=== PATIENT | female | born 1935 | race Caucasian/White ===

== ENCOUNTER 2016-11-03 08:38 | Emergency (ER) | payer MEDICARE ==
[~2016-11-03] VITALS: Ht 152.4 cm; Wt 49.4 kg
[2016-11-03] MEDS ORDERED: CALCTAB28 PO (09:02)
[2016-11-03] MEDS ORDERED: PANT40TA2 (09:02)
[2016-11-03] MEDS ORDERED: ATOR1TAB21 (09:02)
[2016-11-03] MEDS ORDERED: METO-346 PO (09:02)
[2016-11-03] MEDS ORDERED: RAMI25CA (09:02)
[2016-11-03] MEDS ORDERED: GABA-279 (09:02)
[2016-11-03] MEDS: PERCOCET 5MG/325MG TAB PO ONE (10:25)
[2016-11-03] MEDS ORDERED: [UNRECOGNIZED DRUG - CODE] XX (11:09)
[2016-11-03] MEDS ORDERED: PERC5TAB6 PO (11:09)
--- NOTE | 2016-11-03 11:20 | REP ---
PELVIS AND RIGHT HIP: AP view of the pelvis and two views of the right hip are performed. There is no acute fracture or dislocation. Mild degenerative changes are seen at each hip joint and sacroiliac joint, with mild joint space narrowing and subchondral sclerosis. Multiple vascular calcifications and phleboliths are seen in the pelvis. IMPRESSION: Mild degenerative changes without fracture or dislocation. Signed by Hamlet Crawford MD 11/03/2016 04:37 P
[2016-11-03 12:02] VITALS: BP 156/69
== END 2016-11-03 12:22 | disposition home or self-care (01) ==
LOC: M ED 09:45
DX: M54.5 Low back pain (principal); M16.11 Unilateral primary osteoarthritis, right hip; I10 Essential (primary) hypertension; E78.9 Disorder of lipoprotein metabolism, unspecified; I25.10 Atherosclerotic heart disease of native coronary artery without angina pectoris; Z95.1 Presence of aortocoronary bypass graft; Z79.899 Other long term (current) drug therapy

== ENCOUNTER 2016-11-22 20:06 | Inpatient (IN) | payer MEDICARE ==
[~2016-11-22] VITALS: Ht 157.5 cm; Wt 51.6 kg
[~2016-11-22 20:06] MED LIST: ATOR1TAB21 PO; CALCTAB28 PO; GABA-279 PO; METO-346 PO; PANT40TA2 PO; PERC5TAB6 PO; RAMI25CA PO; [UNRECOGNIZED DRUG - CODE] XX
[2016-11-22 21:09] LABS: MEAN CORPUSCULAR HEMOGLOBIN 30.5 pg (27.0-33.0); MEAN CORPUSCULAR HGB CONC 32.4 g/dl (32.0-36.5); MEAN CORPUSCULAR VOLUME 94.4 fl (80.0-96.0); RED CELL DISTRIBUTION WIDTH 12.8 % (11.5-14.5); WHITE BLOOD COUNT 6.3 K/mm3 (4.0-10.0)
[2016-11-22 21:49] LABS: ALBUMIN 3.8 GM/DL (3.2-5.2); ALBUMIN/GLOBULIN RATIO 1.06 (1.00-1.93); BILIRUBIN,TOTAL 0.4 MG/DL (0.2-1.0); CALCIUM LEVEL 8.7 MG/DL (8.8-10.2); CREATININE FOR GFR 1.5 MG/DL (0.55-1.02); GLOMERULAR FILTRATION RATE 35.6 (>32); POTASSIUM SERUM 4.2 MEQ/L (3.5-5.1); TOTAL PROTEIN 7.4 GM/DL (6.4-8.2)
[2016-11-22] MEDS ORDERED: ONDANSETRON 4MG/2ML VIAL (J2405) IV PRN (22:15)
[2016-11-22] MEDS ORDERED: METO-346 PO (22:18)
[2016-11-22] MEDS ORDERED: TYLE650T35 PO (22:18)
[2016-11-22] MEDS: NS 1,000 ML IV SCH (23:09)
--- NOTE | 2016-11-22 23:31 | HPE ---
DATE OF ADMISSION: 11/22/2016 PRIMARY CARE PHYSICIAN: Dr. Milligan INPATIENT HOSPITALIST ATTENDING: Cuco Chew MD CHIEF COMPLAINT: Recurrent falls. HISTORY OF PRESENTING ILLNESS: This is an 81-year-old female who lives alone, history of coronary artery disease (CAD), coronary artery bypass graft (CABG), hysterectomy, hypertension, hypercholesterolemia, reflux disease, cataract surgery, who was in her usual state of health until about 2 months ago when family had noticed worsening cognitive impairment. Patient is almost at full care, requiring prompting to bathe, take care of her medications, patient will not eat and take care of herself without prompting. She lives next door to her son with her [id number] checking up on her daily, sits with her in the evening and eats dinner with her son and [id number]. Patient has been increasingly forgetful and has been having recurrent falls at home a few times and unsteady gait according to the daughter. A nurses' aide comes in the morning to help her bathe and take her medications. Patient was noted to be taking her Depends off at night and usually has many bouts of accidents. She has been complaining of some chills with no fever, cough, shortness of breath, nausea, vomiting, diarrhea, abdominal pain, dysuria, urgency, frequency. Since August this year, she has had worsening cognitive decline prompting the family to request placement for her. Today, around 3 p.m., the nurses' aide had seen her and around 5-6 p.m. the [id number], Leola, came home from work and found her lying on the living room floor on her right side in position. It was very hot in the room. Patient could not remember why she was on the floor and what happened throughout the day. Fingerstick was 175. Vital signs were normal. In the emergency room (ER) she was found to be severely disoriented and confused. She was found to be slightly dehydrated with slight increase in her creatinine. Hospitalist service was called for admission for acute kidney injury and altered mental status and for placement issues. PAST MEDICAL HISTORY: 1. Hypertension. 2. CAD with CABG. 3. Cataracts. PAST SURGERY HISTORY: 1. Hysterectomy 1983. 2. CABG. 3. Cataract surgery bilaterally. ALLERGIES: CIPRO, causing swells up. SOCIAL HISTORY: Lives alone. Previous smoker, at age 19 to August of this year, previously smoked a pack a day. No alcohol use. 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 She currently does not have any advanced directives. Healthcare proxy is the daughter, Nicolle, cell phone is [phone], as well as the brother's girlfriend, Leola. FAMILY HISTORY: Noncontributory due to age. REVIEW OF SYSTEMS: Could not be obtained as the patient is demented. Awake, alert, oriented to her name only. History is provided by the patient's daughter at the bedside. PHYSICAL EXAMINATION: Temperature 98.5, pulse 96, respiratory rate 18, blood pressure 159/93, 93% on room air. Generally, patient is awake, alert, oriented to person only, she is disoriented to time and place. She answers questions appropriately. Speech is fluent. No respiratory distress. Pupils round and reactive. Extraocular muscles are intact. Follows commands. Tongue is midline. No facial asymmetry. No jugular venous distention, thyromegaly, or cervical lymphadenopathy. Lungs are clear to auscultation. No wheezing, rales, or rhonchi. Heart S1, S2, sinus rhythm. Abdomen is soft, nontender, nondistended. Positive bowel sounds times four quadrants. Extremities have no pitting edema. White count 6.3, hemoglobin 13, hematocrit 40, platelet count 276. Sodium 142, potassium 4.2, chloride 106, bicarbonate 29, BUN 27, creatinine 1.5, glucose 162 , calcium 8.7, total bilirubin 0.4, AST 20, ALT 25, alkaline phosphatase 127, total CK 59, MB fraction 1, troponin is 0.02, albumin 3.8. Chest xray, no report available. ASSESSMENT AND PLAN: This is an 81-year-old female with history of coronary artery disease (CAD), coronary artery bypass graft (CABG), history of urinary tract infections (UTIs) with Escherichia (E) coli and Streptococcus, prior hysterectomy, cataract surgery, hypertension, presents with recurrent falls and progressive cognitive decline at home prompting family to request placement. She was found at home on the ground with no recollection of today's events. Patient will be admitted as an inpatient for two midnights and assigned to Dr. Cuco Chew for the following issues: 1. Acute kidney injury. Patient will be given intravenous fluids. Most likely secondary to dehydration, decreased oral intake. Due to severe dementia, patient requires prompting to eat and drink. Patient is requiring placement. Avoid nephrotoxins. Renally dose all medications. Check repeat metabolic panel in the morning. Renal ultrasound if no significant improvement. Strict intake and output and bladder scan if needed. 2. Progressive cognitive impairment. Patient is currently disoriented. Per the family she has been increasingly declining with her mental abilities since August of this year. Will check vitamin D levels. Her gait has progressively worsened as well. Will obtain CT of the brain. Rule out acute infectious process by checking urinalysis, urine culture and sensitivity. 3. Hypertension. Held ramipril due to renal failure. norvasc if sbp>150 4. History of coronary artery disease (CAD), coronary artery bypass graft (CABG). Continue on atorvastatin. Hold ramipril due to acute kidney injury. Continue on metoprolol. 5. Hypercholesterolemia. Check lipid panel in the morning. Continue atorvastatin. 6. Deep venous thrombosis (DVT) prophylaxis with compression stockings. [facility]
--- NOTE | 2016-11-23 00:30 | REPUSA ---
CLINICAL HISTORY: AMS. TECHNIQUE: Multiple axial CT images were obtained through the brain without IV contrast material. COMMENTS: There is normal configuration of sella turcica. There are no intra or extra-axial collections. There is no mass effect or midline shift. There is no evidence of hematoma formation. No hydrocephalus is p resent. The ventricles are symmetrical. No abnormal calcifications are present. There is diffuse age-appropriate cerebellar and cerebral atrophy with proportionally dilated ventricl es and cortical sulci. There are bilateral confluent periventricular and subcortical white matter hypolucencies compatible w ith severe chronic microvascular disease. Otherwise, no significant focal abnormalities are seen either in the posterior fossa or supratentoria l compartment. IMPRESSION: 1. Severe cerebellar and cerebral atrophy. 2. Severe chronic microvascular disease. 3. No evidence of acute intracranial pathology. Thank you for your kind referral of this patient.
[2016-11-23 02:45] VITALS: BP 177/77
[2016-11-23 06:00] VITALS: BP 154/62
[2016-11-23 06:05] LABS: BASO # 0.1 K/mm3 (0.0-0.2); BASO % 1.3 % (0.0-1.0); EOS # 0.2 K/mm3 (0.0-0.50); EOS % 3.4 % (0.0-3.0); LARGE UNSTAINED CELL # 0.2 K/mm3 (0.0-0.4); LARGE UNSTAINED CELL % 3.3 % (0.0-4.0); LYMPH # 2.1 K/mm3 (1.5-4.5); LYMPH % 39.4 % (24.0-44.0); MEAN CORPUSCULAR HGB CONC 33.8 g/dl (32.0-36.5); MEAN CORPUSCULAR VOLUME 91.6 fl (80.0-96.0); MONO # 0.7 K/mm3 (0.0-0.8); MONO % 15.3 % (0.0-5.0); NEUTROPHILS # 1.8 K/mm3 (1.8-7.7); NEUTROPHILS % 37.1 % (36.0-66.0); PLATELET COUNT, AUTOMATED 241 k/mm3 (150-450); WHITE BLOOD COUNT 4.8 K/mm3 (4.0-10.0)
[2016-11-23 06:27] LABS: CALCIUM LEVEL 8.6 MG/DL (8.8-10.2); CREATININE FOR GFR 1.3 MG/DL (0.55-1.02); POTASSIUM SERUM 3.7 MEQ/L (3.5-5.1)
--- NOTE | 2016-11-23 08:18 | ECGEPIP ---
Stationary ECG Study [facility] - ED Test Date: 2016-11-22 Pat Name: STEPHON VASQUEZ Department: Room: [place] [address] Gender: F Stack Yield Engineer: PASQUALE : 1935 Requested By: ZION Tineo Order Number: [id number] Reading MD: Catalina Avendaño Measurements Intervals [place] Rate: 98 P: 56 OK: 164 QRS: -39 QRSD: 117 T: 114 QT: 385 QTc: 492 Interpretive Statements SINUS RHYTHM POSSIBLE LEFT ATRIAL ENLARGEMENT MARKED LEFT AXIS DEVIATION POSSIBLE ANTERIOR MYOCARDIAL INFARCTION, OF INDETERMINATE AGE MODERATE T-WAVE ABNORMALITY, CONSIDER LATERAL ISCHEMIA VS LVH IVCD CLINICAL CORRELATION NO PRIOR FOR COMPARISON Electronically Signed On 11-23-2016 8:18:17 EDT by Catalina Avendaño
--- NOTE | 2016-11-23 08:37 | REP ---
Portable chest, single AP view, the patient upright, and 20, 04:00 p.m., 11/22/2016. Comparison is 09/29/2016. There is a faintly visible linear density inferiorly in the left lung, unchanged, likely parenchymal scar. Lung ag otherwise clear. There are sternotomy wires. Cardiac size is enlarged. These findings are unchanged. The liliana, mediastinum, and bony thorax are unremarkable and unchanged . Impression: There are no acute cardiopulmonary findings. There is a focal scar inferiorly in the left lung, unchanged. Signed by Hamlet Renee MD 11/23/2016 08:28 A
[2016-11-23] MEDS: NS 1,000 ML IV SCH (09:46)
[2016-11-23] MEDS: PANTOPRAZOLE 40MG TAB (PROTONIX) PO SCH (09:46)
--- NOTE | 2016-11-23 13:57 | IPNPDOC ---
Text Note Date of Service The patient was seen on 11/23/16. NOTE Subjective: Pt feels well. Denies CP/SOB/palpitations. No N/V/Abd pain. Objective: Vitals: (see below) General: No acute distress, laying comfortably in bed. HEENT: Moist mucous membranes. Neck: No JVD or lymphadenopathy Cardiac: RRR, No murmurs Pulm: Clear to auscultation b/l. No wheezing, rhonchi Abd: NT/ND + BS Ext: No edema or cyanosis.Distal pulses intact. Neuro: AAO to person and place. Strength 5/5 in all ext. CN 2-12 intact. F to nose intact. Labs (see below) Images: CT Head 11/22/16 IMPRESSION: 1. Severe cerebellar and cerebral atrophy. 2. Severe chronic microvascular disease. 3. No evidence of acute intracranial pathology. CXR 11/22/16 Impression: There are no acute cardiopulmonary findings. There is a focal scar inferiorly in the left lung, unchanged. Assessment/Plan 1. BETITO - likely 2/2 decreased PO intake. Improved with IVF. Cont to monitor. Avoid nephrotoxins. 2. H/o dementia for many years, with progression over the past few months. CT head with severe cerebellar and cerebral atrophy. Severe microvascular dz. Will need 24h care. commissary manager working on placement. CXR negative. Urine cx pending. 3. HTN -ACEi held. On Norvasc. CAD s/p CABBG - on statin. ARIELLA on hold. Cont BB. Add ASA. 4. HLD on statin. DVT prophy - SCDs PT on board. Will likely need placement. Updated daughter and daughter in law. VS,Fishbone, I+O VS, Fishbone, I+O Laboratory Tests 11/22/16 21:00 Red Blood Count 4.27, Mean Corpuscular Volume 94.4, Mean Corpuscular Hemoglobin 30.5, Mean Corpuscular Hemoglobin Concent 32.4, Red Cell Distribution Width 12.8 , Calcium Level 8.7 L, Aspartate Amino Transf (AST/SGOT) 20, Alanine Aminotransferase (ALT/SGPT) 25, Total Creatine Kinase 59, Alkaline Phosphatase 127 H, Total Bilirubin 0.4, Total Protein 7.4, Albumin 3.8 11/23/16 05:50 Red Blood Count 3.73 L, Mean Corpuscular Volume 91.6, Mean Corpuscular Hemoglobin 31.0, Mean Corpuscular Hemoglobin Concent 33.8, Red Cell Distribution Width 13.0, Neutrophils (%) (Auto) 37.1, Lymphocytes (%) (Auto) 39.4, Monocytes (%) (Auto) 15.3 H, Eosinophils (%) (Auto) 3.4 H, Basophils (%) ( Auto) 1.3 H, Neutrophils # (Auto) 1.8, Lymphocytes # (Auto) 2.1, Monocytes # ( Auto) 0.7, Eosinophils # (Auto) 0.2, Basophils # (Auto) 0.1 Vital Signs Date Time Temp Pulse Resp B/P (MAP) Pulse Ox O2 Delivery O2 Flow Rate FiO2 11/23/16 06:00 99.0 83 16 154/62 (92) 91 Room Air I&O- Last 24 Hours up to 6 AM 11/23/16 06:00 Intake Total 360 ml Output Total 0 ml Balance 360 ml GALINA ALEXANDRE MD November 23, 2016 13:57
[2016-11-23 14:00] VITALS: BP 147/88
[2016-11-23] MEDS: ASPIRIN 81 MG ENTERIC TAB PO SCH (16:37)
[2016-11-23 22:00] VITALS: BP 127/57
[2016-11-24 06:00] VITALS: BP 118/58
[2016-11-24] MEDS: ASPIRIN 81 MG ENTERIC TAB PO SCH (07:54)
[2016-11-24] MEDS: PANTOPRAZOLE 40MG TAB (PROTONIX) PO SCH (07:54)
[2016-11-24 09:00] LABS: EOS # 0.1 K/mm3 (0.0-0.50); EOS % 1.9 % (0.0-3.0); LARGE UNSTAINED CELL # 0.1 K/mm3 (0.0-0.4); LARGE UNSTAINED CELL % 1.7 % (0.0-4.0); LYMPH # 1.7 K/mm3 (1.5-4.5); LYMPH % 34.2 % (24.0-44.0); MEAN CORPUSCULAR HEMOGLOBIN 30.5 pg (27.0-33.0); MEAN CORPUSCULAR HGB CONC 32.7 g/dl (32.0-36.5); MEAN CORPUSCULAR VOLUME 93.3 fl (80.0-96.0); MONO # 0.4 K/mm3 (0.0-0.8); MONO % 8.1 % (0.0-5.0); NEUTROPHILS # 2.5 K/mm3 (1.8-7.7); NEUTROPHILS % 53.1 % (36.0-66.0); PLATELET COUNT, AUTOMATED 237 k/mm3 (150-450); RED CELL DISTRIBUTION WIDTH 12.9 % (11.5-14.5); WHITE BLOOD COUNT 4.7 K/mm3 (4.0-10.0)
[2016-11-24 09:22] LABS: CALCIUM LEVEL 8.8 MG/DL (8.8-10.2); CREATININE FOR GFR 1.46 MG/DL (0.55-1.02); GLOMERULAR FILTRATION RATE 36.7 (>32); MAGNESIUM LEVEL 1.8 MG/DL (1.8-2.4); POTASSIUM SERUM 3.8 MEQ/L (3.5-5.1)
[2016-11-24 14:00] VITALS: BP 135/80
--- NOTE | 2016-11-24 16:19 | IPNPDOC ---
Text Note Date of Service The patient was seen on 11/24/16. NOTE Subjective: Pt feels well. Denies CP/SOB/palpitations. No N/V/Abd pain. Objective: Vitals: (see below) General: No acute distress, laying comfortably in bed. HEENT: Moist mucous membranes. Neck: No JVD or lymphadenopathy Cardiac: RRR, No murmurs Pulm: Clear to auscultation b/l. No wheezing, rhonchi Abd: NT/ND + BS Ext: No edema or cyanosis.Distal pulses intact. Neuro: AAO to person and place. Strength 5/5 in all ext. CN 2-12 intact. F to nose intact. Labs (see below) Images: CT Head 11/22/16 IMPRESSION: 1. Severe cerebellar and cerebral atrophy. 2. Severe chronic microvascular disease. 3. No evidence of acute intracranial pathology. CXR 11/22/16 Impression: There are no acute cardiopulmonary findings. There is a focal scar inferiorly in the left lung, unchanged. Assessment/Plan 1. BETITO - likely 2/2 decreased PO intake. Improved with IVF. Cont to monitor. Avoid nephrotoxins. 2. H/o dementia for many years, with progression over the past few months. CT head with severe cerebellar and cerebral atrophy. Severe microvascular dz. Will need 24h care. manager retail sales working on placement. CXR negative. Urine cx pending. 3. HTN -ACEi held. On Norvasc. CAD s/p CABBG - on statin. ARIELLA on hold. Cont BB. Add ASA. 4. HLD on statin. DVT prophy - heparin sq PT on board VS,Fishbone, I+O VS, Fishbone, I+O Laboratory Tests 11/24/16 08:48 Red Blood Count 4.17, Mean Corpuscular Volume 93.3, Mean Corpuscular Hemoglobin 30.5, Mean Corpuscular Hemoglobin Concent 32.7, Red Cell Distribution Width 12.9 , Neutrophils (%) (Auto) 53.1, Lymphocytes (%) (Auto) 34.2, Monocytes (%) (Auto ) 8.1 H, Eosinophils (%) (Auto) 1.9, Basophils (%) (Auto) 1.0, Neutrophils # ( Auto) 2.5, Lymphocytes # (Auto) 1.7, Monocytes # (Auto) 0.4, Eosinophils # (Auto ) 0.1, Basophils # (Auto) 0.0, Calcium Level 8.8 Vital Signs Date Time Temp Pulse Resp B/P (MAP) Pulse Ox O2 Delivery O2 Flow Rate FiO2 11/24/16 14:00 98.3 105 16 135/80 (98) 93 Room Air I&O- Last 24 Hours up to 6 AM 11/24/16 06:00 Intake Total 3360 ml Output Total 600 ml Balance 2760 ml GALINA ALEXANDRE MD November 24, 2016 16:19
[2016-11-24] MEDS: ACETAMINOPHEN TAB 650MG DOSE (2X325MG) PO PRN (21:06)
[2016-11-24] MEDS: HEPARIN SOD (PORCINE) 5000 UNITS/ML VIAL SQ SCH (21:06)
[2016-11-24 22:00] VITALS: BP 156/90
[2016-11-25 06:00] VITALS: BP 168/82
[2016-11-25 06:16] LABS: MEAN CORPUSCULAR HEMOGLOBIN 30.7 pg (27.0-33.0); MEAN CORPUSCULAR HGB CONC 32.7 g/dl (32.0-36.5); MEAN CORPUSCULAR VOLUME 93.8 fl (80.0-96.0); RED CELL DISTRIBUTION WIDTH 12.7 % (11.5-14.5); WHITE BLOOD COUNT 8.2 K/mm3 (4.0-10.0)
[2016-11-25] MEDS: HEPARIN SOD (PORCINE) 5000 UNITS/ML VIAL SQ SCH ×3 (06:18→21:07)
[2016-11-25 06:19] VITALS: BP 136/68
[2016-11-25 06:50] LABS: CALCIUM LEVEL 8.8 MG/DL (8.8-10.2); CREATININE FOR GFR 1.37 MG/DL (0.55-1.02); GLOMERULAR FILTRATION RATE 39.5 (>32)
[2016-11-25] MEDS: CEFEPIME HCL 2 GM in D5W MINI-BAG PLUS 50 ML IV SCH (10:33)
[2016-11-25] MEDS: ASPIRIN 81 MG ENTERIC TAB PO SCH (10:38)
[2016-11-25] MEDS: PANTOPRAZOLE 40MG TAB (PROTONIX) PO SCH (10:39)
[2016-11-25 11:22] VITALS: BP 167/98
[2016-11-25 11:30] VITALS: BP 167/98
[2016-11-25 12:20] VITALS: BP 163/87
--- NOTE | 2016-11-25 14:57 | IPNPDOC ---
Text Note Date of Service The patient was seen on 11/25/16. NOTE Subjective: Mild epigastric tenderness, resolved with BM. No N/V. Denies CP/ SOB/palpitations. Objective: Vitals: (see below) General: No acute distress, laying comfortably in bed. HEENT: Moist mucous membranes. Neck: No JVD or lymphadenopathy Cardiac: RRR, No murmurs Pulm: Clear to auscultation b/l. No wheezing, rhonchi Abd: NT/ND + BS Ext: No edema or cyanosis.Distal pulses intact. Neuro: AAO to person and place. Strength 5/5 in all ext. CN 2-12 intact. F to nose intact. Labs (see below) Images: CT Head 11/22/16 IMPRESSION: 1. Severe cerebellar and cerebral atrophy. 2. Severe chronic microvascular disease. 3. No evidence of acute intracranial pathology. CXR 11/22/16 Impression: There are no acute cardiopulmonary findings. There is a focal scar inferiorly in the left lung, unchanged. Assessment/Plan 1. BETITO - Improved. Likely 2/2 decreased PO intake. s/p IVF. Cont to monitor. Avoid nephrotoxins. 2. H/o dementia for many years, with progression over the past few months. CT head with severe cerebellar and cerebral atrophy. Severe microvascular dz. Will need 24h care. district manager working on placement. 3. UTI - E. Coli. Started on Cefepime. Bld cx pending. 4. HTN -ACEi held. On Norvasc. CAD s/p CABBG - on statin. ARIELLA on hold. Cont BB. Add ASA. 5. HLD on statin. 6. Epigastric discomfort - improved with BM. LFTs, Lipase pending. DVT prophy - heparin sq VS,Fishbone, I+O VS, Fishbone, I+O Laboratory Tests 11/25/16 05:46 Red Blood Count 4.29, Mean Corpuscular Volume 93.8, Mean Corpuscular Hemoglobin 30.7, Mean Corpuscular Hemoglobin Concent 32.7, Red Cell Distribution Width 12.7 , Calcium Level 8.8 Vital Signs Date Time Temp Pulse Resp B/P (MAP) Pulse Ox O2 Delivery O2 Flow Rate FiO2 11/25/16 13:32 99.7 11/25/16 12:20 103 18 163/87 (112) 92 Room Air I&O- Last 24 Hours up to 6 AM 11/25/16 06:00 Intake Total 240 ml Output Total 1100 ml Balance -860 ml GALINA ALEXANDRE MD November 25, 2016 14:57
[2016-11-25 15:02] LABS: ALBUMIN 3.6 GM/DL (3.2-5.2); ALBUMIN/GLOBULIN RATIO 1.06 (1.00-1.93); BILIRUBIN,DIRECT 0.2 MG/DL (0.0-0.2); BILIRUBIN,TOTAL 0.6 MG/DL (0.2-1.0)
[2016-11-25] MEDS ORDERED: HEPARIN SOD (PORCINE) 5000 UNITS/ML VIAL As Ordered ONE (21:00)
[2016-11-25] MEDS: ACETAMINOPHEN TAB 650MG DOSE (2X325MG) PO PRN (21:07)
[2016-11-25 22:00] VITALS: BP 148/81
[2016-11-26 05:42] LABS: MEAN CORPUSCULAR HEMOGLOBIN 30.5 pg (27.0-33.0); MEAN CORPUSCULAR HGB CONC 33.4 g/dl (32.0-36.5); MEAN CORPUSCULAR VOLUME 91.2 fl (80.0-96.0); RED CELL DISTRIBUTION WIDTH 12.8 % (11.5-14.5); WHITE BLOOD COUNT 6.8 K/mm3 (4.0-10.0)
[2016-11-26 05:55] LABS: CALCIUM LEVEL 8.8 MG/DL (8.8-10.2); CREATININE FOR GFR 1.26 MG/DL (0.55-1.02); GLOMERULAR FILTRATION RATE 43.5 (>32); POTASSIUM SERUM 3.7 MEQ/L (3.5-5.1)
[2016-11-26 06:00] VITALS: BP 149/76
[2016-11-26] MEDS: HEPARIN SOD (PORCINE) 5000 UNITS/ML VIAL SQ SCH ×3 (06:14→21:20)
[2016-11-26] MEDS: PANTOPRAZOLE 40MG TAB (PROTONIX) PO SCH (09:51)
[2016-11-26] MEDS: ASPIRIN 81 MG ENTERIC TAB PO SCH (09:51)
[2016-11-26] MEDS: CEFEPIME HCL 2 GM in D5W MINI-BAG PLUS 50 ML IV SCH (09:51)
[2016-11-26 14:00] VITALS: BP 129/79
[2016-11-26] MEDS: ACETAMINOPHEN TAB 650MG DOSE (2X325MG) PO PRN (21:19)
--- NOTE | 2016-11-26 21:50 | IPNPDOC ---
Text Note Date of Service The patient was seen on 11/26/16. NOTE Subjective: Mild epigastric tenderness, resolved with BM. No N/V. Denies CP/ SOB/palpitations. Objective: Vitals: (see below) General: No acute distress, laying comfortably in bed. HEENT: Moist mucous membranes. Neck: No JVD or lymphadenopathy Cardiac: RRR, No murmurs Pulm: Clear to auscultation b/l. No wheezing, rhonchi Abd: NT/ND + BS Ext: No edema or cyanosis.Distal pulses intact. Neuro: AAO to person and place. Strength 5/5 in all ext. CN 2-12 intact. F to nose intact. Labs (see below) Images: CT Head 11/22/16 IMPRESSION: 1. Severe cerebellar and cerebral atrophy. 2. Severe chronic microvascular disease. 3. No evidence of acute intracranial pathology. CXR 11/22/16 Impression: There are no acute cardiopulmonary findings. There is a focal scar inferiorly in the left lung, unchanged. Assessment/Plan 1. BETITO - Improved. Likely 2/2 decreased PO intake. s/p IVF. Cont to monitor. Avoid nephrotoxins. 2. H/o dementia for many years, with progression over the past few months. CT head with severe cerebellar and cerebral atrophy. Severe microvascular dz. Will need 24h care. front end manager working on placement. 3. UTI - E. Coli. Started on Cefepime. Bld cx negative 4. HTN -ACEi held. On Norvasc. CAD s/p CABBG - on statin. ARIELLA on hold. Cont BB. Add ASA. 5. HLD on statin. 6. Epigastric discomfort - improved with BM. LFTs, Lipase pending. DVT prophy - heparin sq VS,Fishbone, I+O VS, Fishbone, I+O Laboratory Tests 11/26/16 05:32 Red Blood Count 3.91 L, Mean Corpuscular Volume 91.2, Mean Corpuscular Hemoglobin 30.5, Mean Corpuscular Hemoglobin Concent 33.4, Red Cell Distribution Width 12.8, Calcium Level 8.8 Vital Signs Date Time Temp Pulse Resp B/P (MAP) Pulse Ox O2 Delivery O2 Flow Rate FiO2 11/26/16 14:00 99.5 102 18 129/79 (96) 94 Room Air I&O- Last 24 Hours up to 6 AM 11/26/16 06:00 Intake Total 950 ml Output Total 150 ml Balance 800 ml GALINA ALEXANDRE MD November 26, 2016 21:50
[2016-11-26 22:00] VITALS: BP 147/89
[2016-11-27] MEDS: HEPARIN SOD (PORCINE) 5000 UNITS/ML VIAL SQ SCH ×3 (05:27→20:45)
[2016-11-27 05:53] LABS: MEAN CORPUSCULAR VOLUME 91.3 fl (80.0-96.0); RED CELL DISTRIBUTION WIDTH 12.7 % (11.5-14.5); WHITE BLOOD COUNT 6.2 K/mm3 (4.0-10.0)
[2016-11-27 05:58] LABS: CREATININE FOR GFR 1.31 MG/DL (0.55-1.02); GLOMERULAR FILTRATION RATE 41.6 (>32); POTASSIUM SERUM 3.9 MEQ/L (3.5-5.1)
[2016-11-27 06:00] VITALS: BP 125/71
[2016-11-27] MEDS: ASPIRIN 81 MG ENTERIC TAB PO SCH (09:30)
[2016-11-27] MEDS: CEFEPIME HCL 2 GM in D5W MINI-BAG PLUS 50 ML IV SCH (09:30)
[2016-11-27] MEDS: PANTOPRAZOLE 40MG TAB (PROTONIX) PO SCH (09:30)
[2016-11-27] MEDS: ACETAMINOPHEN TAB 650MG DOSE (2X325MG) PO PRN ×2 (10:54→20:44)
[2016-11-27 14:00] VITALS: BP 129/65
--- NOTE | 2016-11-27 15:08 | IPNPDOC ---
Text Note Date of Service The patient was seen on 11/27/16. NOTE Subjective: Mild epigastric tenderness, resolved with BM. No N/V. Denies CP/ SOB/palpitations. Objective: Vitals: (see below) General: No acute distress, laying comfortably in bed. HEENT: Moist mucous membranes. Neck: No JVD or lymphadenopathy Cardiac: RRR, No murmurs Pulm: Clear to auscultation b/l. No wheezing, rhonchi Abd: NT/ND + BS Ext: No edema or cyanosis.Distal pulses intact. Neuro: AAO to person and place. Strength 5/5 in all ext. CN 2-12 intact. F to nose intact. Labs (see below) Images: CT Head 11/22/16 IMPRESSION: 1. Severe cerebellar and cerebral atrophy. 2. Severe chronic microvascular disease. 3. No evidence of acute intracranial pathology. CXR 11/22/16 Impression: There are no acute cardiopulmonary findings. There is a focal scar inferiorly in the left lung, unchanged. Assessment/Plan 1. BETITO - Improved. Likely 2/2 decreased PO intake. s/p IVF. Cont to monitor. Avoid nephrotoxins. 2. H/o dementia for many years, with progression over the past few months. CT head with severe cerebellar and cerebral atrophy. Severe microvascular dz. Will need 24h care. manager access working on placement. 3. UTI - E. Coli. Started on Cefepime. Bld cx negative 4. HTN -ACEi held. On Norvasc. CAD s/p CABBG - on statin. ARIELLA on hold. Cont BB. Add ASA. 5. HLD on statin. 6. Epigastric discomfort - resolved. improved with BM. LFTs, Lipase wnl DVT prophy - heparin sq VS,Fishbone, I+O VS, Fishbone, I+O Laboratory Tests 11/27/16 05:27 Red Blood Count 3.96 L, Mean Corpuscular Volume 91.3, Mean Corpuscular Hemoglobin 31.0, Mean Corpuscular Hemoglobin Concent 34.0, Red Cell Distribution Width 12.7, Calcium Level 9.0 Vital Signs Date Time Temp Pulse Resp B/P (MAP) Pulse Ox O2 Delivery O2 Flow Rate FiO2 11/27/16 06:00 97.5 94 18 125/71 (89) 93 Room Air I&O- Last 24 Hours up to 6 AM 11/27/16 06:00 Intake Total 990 ml Output Total 375 ml Balance 615 ml GALINA ALEXANDRE MD November 27, 2016 15:08
[2016-11-27] MEDS: BACTRIM 80MG/400MG TAB PO SCH (20:44)
[2016-11-27 22:00] VITALS: BP 139/84
[2016-11-28] MEDS: HEPARIN SOD (PORCINE) 5000 UNITS/ML VIAL SQ SCH (05:19)
[2016-11-28 06:00] VITALS: BP 139/73
[2016-11-28 07:07] LABS: MEAN CORPUSCULAR HEMOGLOBIN 30.5 pg (27.0-33.0); MEAN CORPUSCULAR HGB CONC 33.4 g/dl (32.0-36.5); MEAN CORPUSCULAR VOLUME 91.3 fl (80.0-96.0); RED CELL DISTRIBUTION WIDTH 12.7 % (11.5-14.5); WHITE BLOOD COUNT 7.4 K/mm3 (4.0-10.0)
[2016-11-28 07:17] LABS: CALCIUM LEVEL 9.1 MG/DL (8.8-10.2); CREATININE FOR GFR 1.4 MG/DL (0.55-1.02); GLOMERULAR FILTRATION RATE 38.5 (>32); POTASSIUM SERUM 4.1 MEQ/L (3.5-5.1)
--- NOTE | 2016-11-28 08:37 | REP ---
Clinical: Abdominal pain. Comparison: 06/04/2012. Findings: Liver and spleen demonstrate scattered parenchymal calcifications suggesting sequelae of prior granulomatous disease. Pancreas, gallbladder, and bilateral adrenal glands are normal. Kidneys demonstrate renovascular calcifications and mild age-related atrophy as well as presumed 5 cm right parapelvic cyst. The enteric system is without obstruction or obvious acute inflammatory process. Colonic diverticulosis noted without acute diverticulitis. Pelvis demonstrates normal bladder and findings to suggest prior hysterectomy. No ascites. No free air. No adenopathy. Surrounding musculoskeletal structures demonstrate age-related changes. Lung bases demonstrate chronic interstitial changes. The aorta demonstrates extensive atherosclerotic disease and appears diffusely ectatic measuring up to 4.9 cm maximal diameter at the proximal aorta and 4 cm maximal diameter at the level of the renal arteries with similar ectasia involving the bilateral common iliac arteries measuring 2 cm on the right and 1.7 cm on the left. Impression: 1. Extensive atherosclerotic disease and diffuse ectasia of the aorta and common iliac arteries with elements of aneurysmal dilatation measuring 4.9 cm maximal diameter at the proximal aorta and 4 cm maximal diameter at the level of the renal arteries. 2. Diverticulosis without acute diverticulitis. 3. 5 cm parapelvic right renal cyst. 4. No further acute pathology. No free fluid. No free air. Signed by Herb Barry MD 11/28/2016 08:29 A
[2016-11-28] MEDS ORDERED: MIRALAX *UNIT DOSE* 17GM PACKET PO PRN (09:15)
[2016-11-28] MEDS ORDERED: SENOKOT S TAB PO PRN (09:15)
[2016-11-28] MEDS: PANTOPRAZOLE 40MG TAB (PROTONIX) PO SCH (09:53)
[2016-11-28] MEDS: BACTRIM 80MG/400MG TAB PO SCH (09:53)
[2016-11-28] MEDS: ASPIRIN 81 MG ENTERIC TAB PO SCH (09:53)
[2016-11-28] MEDS ORDERED: ASPI81TAEC PO (12:49)
[2016-11-28] MEDS ORDERED: SULF1TAB72 PO (12:49)
--- NOTE | 2016-11-28 17:38 | DSES ---
DATE OF ADMISSION: 11/22/2016 DATE OF DISCHARGE: 11/28/2016 PRIMARY CARE PROVIDER: Dr. Milligan CONSULTANTS: None. PROCEDURES: None. ADMISSION/DISCHARGE DIAGNOSES: 1. Acute kidney injury secondary to poor oral intake. 2. History of worsening dementia. 3. Escherichia (E) coli urinary tract infection (UTI). 4. Hypertension. 5. Dyslipidemia. HOSPITALIZATION COURSE: The patient is an 81-year-old female who presented to [facility] on 11/22/2016 for recurrent falls. During admission process, the patient was found to have acute kidney injury, most likely secondary to dehydration from poor oral intake. The patient was started on IV hydration. CT of the brain was obtained, which showed severe chronic microvascular disease and cerebellar/cerebral atrophy. Later, the patient's urinalysis came back positive and the culture later showed positive for E coli. Initially, the patient was started on cefepime empirically. Once the sensitivity was available, the patient's antibiotic was switched accordingly. Due to the patient's impaired activities of daily living, case management social worker has been involved and looking for placement. On 11/28/2016, the patient has a room at [facility] and the patient is discharged from [facility] and the patient will be admitted to [facility] with recommendations to finish antibiotic treatment for her urinary tract infection (UTI). OBJECTIVE: VITAL SIGNS: Temperature 98.9, pulse is 94, respirations 16, blood pressure 139/73, pulse oximetry is 96% on room air. LABORATORY DATA: WBC is 7.4, hemoglobin 12, hematocrit 35.9, platelet count is 231. Sodium is 137, potassium 4.1, chloride 103, carbon dioxide 25, BUN 31, creatinine 1.4, GFR is 38.5, fasting glucose is 185, calcium is 9.1. UA on 11/22/2016 showed positive for nitrates, 12 WBC, 1+ bacteria. Urine culture showed positive for E coli. The patient had blood cultures negative after 48 hours times two sets. IMAGING STUDIES: Chest x-ray showed no acute cardiopulmonary findings. There is a focal scar inferior in the left lung. CT of the head without contrast showed severe cerebellar and cerebral atrophy. Severe chronic microvascular disease. No evidence of acute intracranial pathology. CT of the abdomen and pelvis without contrast showed extensive atherosclerotic disease, diffuse ectasia of the aorta and common iliac artery with elements of aneurysmal diltation measuring 4.9 cm in maximal diameter, diverticulosis without acute diverticulitis. There is a 5 cm parapelvic right renal cyst. DISCHARGE MEDICATIONS: - aspirin 81 mg by mouth daily - Bactrim one tablet by mouth twice a day for 2 more days - Tylenol 650 mg by mouth twice a day - atorvastatin 20 mg by mouth daily - calcium/vitamin D supplement one tablet by mouth daily - gabapentin 300 mg by mouth twice a day - metoprolol tartrate 12.5 mg by mouth twice a day - pantoprazole 40 mg by mouth daily DISCHARGE INSTRUCTIONS: Discontinue lines. Discharge to [facility]. Activity as tolerated with fall precautions. 2 gram low salt diet as tolerated. The patient should followup with primary care provider within 1 week. DISCHARGE CONDITION: Stable. DISCHARGE TIME: Greater than 30 minutes.
== END 2016-11-28 14:00 | DRG 57 ==
LOC: EDUNIT# 20:06 → EDBD 20:06 → M ED 21:29 → M ED INP 22:09 → OBSVTOIN 22:09 → INTOOBSV 22:09 → M MSPAV 11-23 02:45
PROVIDERS: ADMIT General Practice; ATTEND Internal Medicine
DX: G31.9 Degenerative disease of nervous system, unspecified (principal); N17.9 Acute kidney failure, unspecified; N39.0 Urinary tract infection, site not specified; R29.6 Repeated falls; I10 Essential (primary) hypertension; F03.90 Unspecified dementia, unspecified severity, without behavioral disturbance, psychotic disturbance, mood disturbance, and anxiety; B96.20 Unspecified Escherichia coli [E. coli] as the cause of diseases classified elsewhere; E78.5 Hyperlipidemia, unspecified; E78.00 Pure hypercholesterolemia, unspecified; Z79.82 Long term (current) use of aspirin; Z79.899 Other long term (current) drug therapy; Z90.710 Acquired absence of both cervix and uterus; Z95.5 Presence of coronary angioplasty implant and graft; Z88.1 Allergy status to other antibiotic agents; Z87.891 Personal history of nicotine dependence; Z87.440 Personal history of urinary (tract) infections

== ENCOUNTER → 2016-11-29 | Outpatient (REF) | payer MEDICARE ==
[~2016-11-29] MED LIST changes: +ASPI81TAEC PO; +SULF1TAB72 PO; +TYLE650T35 PO
[2016-11-29 10:01] LABS: CALCIUM LEVEL 9.6 MG/DL (8.8-10.2); CREATININE FOR GFR 1.74 MG/DL (0.55-1.02); POTASSIUM SERUM 4.5 MEQ/L (3.5-5.1)
== END ==
LOC: SKLAB6 07:00
DX: I10 Essential (primary) hypertension (principal)

== ENCOUNTER → 2016-12-04 | Outpatient (REF) | payer MEDICARE ==
[2016-12-04 07:06] LABS: CALCIUM LEVEL 9.1 MG/DL (8.8-10.2); CREATININE FOR GFR 1.39 MG/DL (0.55-1.02); GLOMERULAR FILTRATION RATE 38.8 (>32); POTASSIUM SERUM 4.3 MEQ/L (3.5-5.1)
== END ==
LOC: SKLAB6 07:00
DX: I10 Essential (primary) hypertension (principal); F03.90 Unspecified dementia, unspecified severity, without behavioral disturbance, psychotic disturbance, mood disturbance, and anxiety

== ENCOUNTER → 2016-12-05 | Outpatient (REF) | payer MEDICARE ==
[2016-12-05 08:42] LABS: VITAMIN B12 LEVEL 497 PG/ML (247-911)
== END ==
LOC: SKLAB6 08:00
DX: F03.90 Unspecified dementia, unspecified severity, without behavioral disturbance, psychotic disturbance, mood disturbance, and anxiety (principal)

== ENCOUNTER 2017-01-13 18:24 | Emergency (ER) | payer MEDICARE, MEDICAID ==
[~2017-01-13 18:24] MED LIST changes: +PERC5TAB12 PO; -PERC5TAB6 PO
[2017-01-13] MEDS ORDERED: MIRA3350 PO (18:42)
[2017-01-13] MEDS ORDERED: ACET1TAB17 PO (18:42)
[2017-01-13] MEDS ORDERED: MULT1TAB10 PO (18:42)
[2017-01-13] MEDS ORDERED: ACET65SU PR (18:42)
[2017-01-13] MEDS ORDERED: BISA10SU4 PR (18:42)
[2017-01-13] MEDS ORDERED: SENN8.6C PO (18:42)
[2017-01-13] MEDS ORDERED: MOM30SS PO (18:42)
[2017-01-13 20:23] LABS: BASO # 0.1 K/mm3 (0.0-0.2); BASO % 1.1 % (0.0-1.0); EOS # 0.3 K/mm3 (0.0-0.50); EOS % 2.8 % (0.0-3.0); LARGE UNSTAINED CELL # 0.2 K/mm3 (0.0-0.4); LARGE UNSTAINED CELL % 2.3 % (0.0-4.0); LYMPH # 2.5 K/mm3 (1.5-4.5); MEAN CORPUSCULAR HEMOGLOBIN 30.3 pg (27.0-33.0); MEAN CORPUSCULAR VOLUME 91.8 fl (80.0-96.0); MONO # 0.7 K/mm3 (0.0-0.8); MONO % 7.2 % (0.0-5.0); NEUTROPHILS # 5.7 K/mm3 (1.8-7.7); NEUTROPHILS % 60.5 % (36.0-66.0); PLATELET COUNT, AUTOMATED 358 k/mm3 (150-450); RED CELL DISTRIBUTION WIDTH 12.8 % (11.5-14.5); WHITE BLOOD COUNT 9.5 K/mm3 (4.0-10.0)
[2017-01-13 20:44] LABS: ALBUMIN 3.8 GM/DL (3.2-5.2); BILIRUBIN,DIRECT 0.1 MG/DL (0.0-0.2); BILIRUBIN,TOTAL 0.5 MG/DL (0.2-1.0); CALCIUM LEVEL 9.5 MG/DL (8.8-10.2); CREATININE FOR GFR 1.31 MG/DL (0.55-1.02); GLOMERULAR FILTRATION RATE 41.6 (>32); POTASSIUM SERUM 4.1 MEQ/L (3.5-5.1); TOTAL PROTEIN 7.6 GM/DL (6.4-8.2)
[2017-01-13] MEDS ORDERED: GASTROGRAFIN SOLUTION 30ML PO ONE (21:05)
[2017-01-13] MEDS ORDERED: ISOVUE-370 76% 100ML VIAL (Q9967) As Ordered ONE (21:25)
[2017-01-13] MEDS ORDERED: NITROFURANTOIN (MACROBID) 100 MG CAP PO ONE (21:30)
[2017-01-13] MEDS ORDERED: GASTROGRAFIN SOLUTION 30ML (Q9963) PO ONE (21:35)
--- NOTE | 2017-01-14 00:10 | REPUSA ---
CT of the abdomen and pelvis with contrast Clinical statement: Pain. Technique: Multiple axial CT images were obtained from the base of the lungs through the floor of the pelvis utilizing 5 mm axial slices after administration of oral and nonionic intravenous contrast. C oronal and sagittal reconstructions were also obtained. Comparison: 11/27/2016. Findings: Chest: The visualized lung bases are clear. Abdomen: There is a large aortic aneurysm, with a maximal diameter of 4.1 x 4.7 cm in the proximal a bdominal aorta. Chronic dissection is appreciated, with curvilinear thrombus is demonstrated along th e right anterior aspect of the upper thoracic aorta, and in the left lateral aspect in the midabdomin al aorta. There is moderately severe atherosclerosis and narrowing of the renal arteries bilaterally. Aneurysmal dilatation of the iliac arteries is seen bilaterally as well. Mild atherosclerosis is see n in the mesenteric arteries. The liver, spleen, pancreas, kidneys, gallbladder, and adrenal glands a re unremarkable, other than a large simple cyst in the upper right kidney measuring 5.8 x 3.2 cm. The re is no evidence of abdominal lymphadenopathy or ascites. Pelvis: The bowel is unremarkable, with no obstructive or inflammatory changes. The urinary bladder i s within normal limits. The other pelvic structures appear grossly intact. There is no evidence of pe lvic lymphadenopathy or ascites. Bones: There are no suspicious osseous abnormalities seen. There is moderately severe multilevel dege nerative disc disease from L2 through S1. Impression: 1. Large diffuse abdominal aortic aneurysm, grossly stable in size and appearance since the prior CT study. 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 There is no evidence of rupture of the aort ic aneurysm. Diffuse atherosclerotic changes are noted, with moderately severe atherosclerotic narrow ing of the renal arteries bilaterally. 2. No obstructive or inflammatory bowel changes. 3. Stable large simple right renal cyst. 4.. Moderately severe stable spondylosis of multilevel degenerative disc disease in the lumbar spine.
[2017-01-14] MEDS ORDERED: MACR100C43 PO (00:51)
[2017-01-14 01:11] VITALS: BP 159/90
--- NOTE | 2017-01-15 11:59 | ED PDOC ---
Post-Departure Follow-Up certified letter sent to pt re formal read of ct abd/p. see report. no pcp documented. needs fu Torrie Buchanan MD Jan 15, 2017 11:59
== END 2017-01-14 02:09 | disposition home or self-care (01) ==
LOC: M ED 18:24
DX: N39.0 Urinary tract infection, site not specified (principal); B95.2 Enterococcus as the cause of diseases classified elsewhere; N28.1 Cyst of kidney, acquired; I71.4 Abdominal aortic aneurysm, without rupture; M51.37 Other intervertebral disc degeneration, lumbosacral region; I25.10 Atherosclerotic heart disease of native coronary artery without angina pectoris; I12.9 Hypertensive chronic kidney disease with stage 1 through stage 4 chronic kidney disease, or unspecified chronic kidney disease; E78.5 Hyperlipidemia, unspecified; D64.9 Anemia, unspecified; N18.9 Chronic kidney disease, unspecified; R13.10 Dysphagia, unspecified; F03.90 Unspecified dementia, unspecified severity, without behavioral disturbance, psychotic disturbance, mood disturbance, and anxiety; Z90.79 Acquired absence of other genital organ(s); Z88.1 Allergy status to other antibiotic agents; Z79.82 Long term (current) use of aspirin; Z79.899 Other long term (current) drug therapy
CPT/HCPCS: 36415; 51701; 74177; 80048; 80076; 81001; 83605; 83690; 85025; 87088; 87186; 93041; 94760; 99285; Q9963; Q9967

== ENCOUNTER 2017-02-06 16:52 | Observation (INO) | payer MEDICARE, MEDICAID ==
[~2017-02-06] VITALS: Ht 157.5 cm; Wt 44.2 kg
[~2017-02-06 16:52] MED LIST changes: +ACET1TAB17 PO; +ACET65SU PR; +BISA10SU4 PR; +MACR100C43 PO; +MIRA3350 PO; +MOM30SS PO; +MULT1TAB10 PO; +SENN8.6C PO
[2017-02-06] MEDS ORDERED: levETIRAcetam INJection 1,000 MG in D5W 100 ML IV ONE (17:45)
[2017-02-06 18:44] LABS: BASO % 0.3 % (0.0-1.0); EOS % 0.4 % (0.0-3.0); LARGE UNSTAINED CELL # 0.1 K/mm3 (0.0-0.4); LARGE UNSTAINED CELL % 0.6 % (0.0-4.0); LYMPH # 1.7 K/mm3 (1.5-4.5); LYMPH % 13.7 % (24.0-44.0); MEAN CORPUSCULAR HEMOGLOBIN 29.7 pg (27.0-33.0); MEAN CORPUSCULAR HGB CONC 31.3 g/dl (32.0-36.5); MEAN CORPUSCULAR VOLUME 94.7 fl (80.0-96.0); MONO # 0.7 K/mm3 (0.0-0.8); NEUTROPHILS # 9.2 K/mm3 (1.8-7.7); PLATELET COUNT, AUTOMATED 391 k/mm3 (150-450); RED CELL DISTRIBUTION WIDTH 12.9 % (11.5-14.5); WHITE BLOOD COUNT 11.7 K/mm3 (4.0-10.0)
[2017-02-06 18:49] LABS: INR 1.08
[2017-02-06] MEDS ORDERED: LORazepam 2 MG/ML VIAL (J2060) IV STA (18:52)
--- NOTE | 2017-02-06 18:54 | REP ---
Chest one-view HISTORY: Infarction Comparison: 11/22/2016 Linear density is present in the left lower lobe consistent with scar. The right lung is clear. The cardiac silhouette is enlarged. The pulmonary vasculature is normal in appearance. Impression: 1. Left lower lobe scar. 2. Cardiomegaly. Signed by Toni Lott MD 02/06/2017 06:46 P
--- NOTE | 2017-02-06 18:54 | REP ---
CT HEAD WITHOUT CONTRAST: HISTORY: Infarction. COMPARISON: 11/22/2016. Areas of decreased attentuation are present in the preventricular and subcortical white matter. This represents small vessel ischemic disease. There is no intraparenchymal hemorrhage, mass, or midline shift. The ventricular system and cortical sulci as well as subarachnoid space and the posterior fossa are dilated consistent with moderate volume loss. There is no extracerebral collection. Mucosal thickening is present in the left sphenoid sinus. IMPRESSION: 1. Small vessel ischemic disease. 2. Moderate volume loss. Signed by Toni Lott MD 02/06/2017 06:55 P
[2017-02-06 19:24] LABS: CALCIUM LEVEL 10.7 MG/DL (8.8-10.2); CREATININE FOR GFR 2.13 MG/DL (0.55-1.02); GLOMERULAR FILTRATION RATE 23.7 (>32); POTASSIUM SERUM 4.9 MEQ/L (3.5-5.1)
[2017-02-06] MEDS ORDERED: HumuLIN R (REGULAR) INSULIN (NovoLIN R) **100U/ML** PER UNIT SC STA (20:17)
[2017-02-06] MEDS ORDERED: NS 500 ML IV ONE (20:45)
[2017-02-06] MEDS ORDERED: ONDANSETRON 4MG/2ML VIAL (J2405) IV PRN ×2 (21:00→23:00)
[2017-02-06] MEDS ORDERED: NS 1,000 ML IV SCH ×2 (21:00→22:56)
[2017-02-06] MEDS: METOPROLOL TART 12.5 MG PER 1/2 TAB PO SCH (21:00)
[2017-02-06] MEDS ORDERED: ACETAMINOPHEN TAB 650MG DOSE (2X325MG) PO PRN (21:00)
[2017-02-06] MEDS ORDERED: TYLE325T5 PO (21:36)
[2017-02-06] MEDS ORDERED: CLOTR1CR TOP (21:36)
[2017-02-06] MEDS ORDERED: VITMTA PO (21:36)
[2017-02-06] MEDS ORDERED: MIRA33504 PO (21:36)
[2017-02-06] MEDS ORDERED: MILKSUS PO (21:36)
[2017-02-06] MEDS ORDERED: ASPI81CH PO (21:36)
[2017-02-06] MEDS ORDERED: CALC1TAB17 PO (21:36)
[2017-02-06] MEDS ORDERED: ENEMENE16 PR (21:36)
[2017-02-06] MEDS ORDERED: SENN8.6T7 PO (21:36)
[2017-02-06] MEDS ORDERED: HumuLIN R (REGULAR) INSULIN (NovoLIN R) **100U/ML** PER UNIT IV ONE (22:45)
[2017-02-06] MEDS ORDERED: MIRALAX *UNIT DOSE* 17GM PACKET PO PRN (23:00)
[2017-02-06] MEDS ORDERED: BISACODYL 10 MG SUPP PR PRN (23:00)
[2017-02-06] MEDS ORDERED: ACETAMINOPHEN 325 MG TAB PO PRN (23:00)
[2017-02-06] MEDS ORDERED: SENOKOT S TAB PO PRN (23:00)
[2017-02-06] MEDS ORDERED: HEPARIN SOD (PORCINE) 5000 UNITS/ML VIAL SC SCH (23:00)
[2017-02-06] MEDS ORDERED: MOM 30ML SUSPENSION UDC PO PRN (23:00)
[2017-02-06] MEDS ORDERED: FLEET ENEMA PR PRN (23:00)
[2017-02-07] MEDS ORDERED: GLUCOSE 4 GM CHEW TABLET PO PRN ×2 (00:15→02:00)
[2017-02-07] MEDS ORDERED: GLUCAGON FOR INJ 1 MG VIAL (J1610) SC PRN ×2 (00:15→02:00)
[2017-02-07] MEDS ORDERED: DEXTROSE 50% 50 ML SYRINGE IV PRN ×2 (00:15→02:00)
[2017-02-07] MEDS ORDERED: ASPIRIN 300 MG SUPP PR ONE (01:00)
[2017-02-07 01:01] LABS: ALBUMIN 3.7 GM/DL (3.2-5.2); PHOSPHORUS LEVEL 4.6 MG/DL (2.5-4.9)
[2017-02-07] MEDS: HumaLOG INSULIN (NovoLOG) PER UNIT SC SCH ×3 (02:06→12:00)
[2017-02-07 02:08] VITALS: BP 116/69
[2017-02-07 03:25] LABS: ALBUMIN 3.5 GM/DL (3.2-5.2); CALCIUM LEVEL 10.7 MG/DL (8.8-10.2); CREATININE FOR GFR 2.45 MG/DL (0.55-1.02); GLOMERULAR FILTRATION RATE 20.1 (>32); POTASSIUM SERUM 4.2 MEQ/L (3.5-5.1)
[2017-02-07 03:35] LABS: PHOSPHORUS LEVEL 1.4 MG/DL (2.5-4.9)
[2017-02-07] MEDS ORDERED: NS 1,000 ML IV SCH (03:45)
[2017-02-07 04:00] VITALS: BP 107/68
[2017-02-07] MEDS ORDERED: HEPARIN SOD (PORCINE) 5000 UNITS/ML VIAL SC SCH (06:00)
[2017-02-07] MEDS ORDERED: HumaLOG INSULIN (NovoLOG) PER UNIT SC SCH ×2 (07:30→21:00)
[2017-02-07 08:00] VITALS: BP 122/90
[2017-02-07 08:03] LABS: MEAN CORPUSCULAR HEMOGLOBIN 30.1 pg (27.0-33.0); MEAN CORPUSCULAR HGB CONC 32.6 g/dl (32.0-36.5); MEAN CORPUSCULAR VOLUME 92.3 fl (80.0-96.0); RED CELL DISTRIBUTION WIDTH 13.1 % (11.5-14.5); WHITE BLOOD COUNT 20.5 K/mm3 (4.0-10.0)
[2017-02-07 08:05] VITALS: BP 122/90
[2017-02-07] MEDS: METOPROLOL TART 12.5 MG PER 1/2 TAB PO SCH (08:05)
[2017-02-07 08:21] LABS: CALCIUM LEVEL 10.5 MG/DL (8.8-10.2); CREATININE FOR GFR 2.19 MG/DL (0.55-1.02); GLOMERULAR FILTRATION RATE 22.9 (>32); POTASSIUM SERUM 3.8 MEQ/L (3.5-5.1)
--- NOTE | 2017-02-07 08:34 | ECGEPIP ---
Stationary ECG Study [facility] Test Date: 2017-02-07 Pat Name: TSEPHON VASQUEZ Department: Room: [place] [address] Gender: F Medical Information Specialist: JosephB: 1935 Requested By: ZION Tineo Order Number: [id number] Reading MD: Rodriguez Francisco Measurements Intervals [place] Rate: 133 P: 37 [place]: 131 QRS: -33 QRSD: 127 T: 114 QT: 328 QTc: 490 Interpretive Statements SINUS TACHYCARDIA MARKED LEFT AXIS DEVIATION LEFT BUNDLE BRANCH BLOCK Other than the faster heart rate, unchanged from 11/22/16. Electronically Signed On 02-07-2017 8:34:42 EDT by Rodriguez Francisco
--- NOTE | 2017-02-07 08:37 | ECGEPIP ---
Stationary ECG Study [facility] Test Date: 2017-02-07 Pat Name: STEPHON VASQUEZ Department: Room: [place] [address] Gender: F Backend Python Developer: JUJU : 1935 Requested By: ZION Tineo Order Number: [id number] Reading MD: Rodriguez Francisco Measurements Intervals [place] Rate: 121 P: 77 [place]: 135 QRS: 47 QRSD: 126 T: 88 QT: 351 QTc: 500 Interpretive Statements Sinus tachycardia. Left axis Left bundle branch block. Other than slower rate, unchanged from tracing taken earlier this same day Electronically Signed On 02-07-2017 8:37:13 EDT by Rodriguez Francisco
[2017-02-07] MEDS ORDERED: NYSTATIN 100,000 UNITS/GM TOPICAL PWD 15 GM TOP SCH (09:00)
[2017-02-07] MEDS ORDERED: levETIRAcetam 250MG TABLET (KEPPRA) PO SCH (09:00)
[2017-02-07] MEDS ORDERED: CLOTRIMAZOLE 1% TOPICAL CREAM 30GM TOP SCH (09:00)
[2017-02-07] MEDS ORDERED: PANTOPRAZOLE 40MG TAB (PROTONIX) PO SCH (09:00)
[2017-02-07] MEDS ORDERED: MULTIVITAMINS/MINERALS THERAP 1 TAB PO SCH (09:00)
[2017-02-07] MEDS ORDERED: ASPIRIN 81 MG CHEW TABLET PO SCH (09:00)
[2017-02-07 10:37] VITALS: BP 121/90
--- NOTE | 2017-02-07 11:31 | REP ---
MRA BRAIN WITHOUT CONTRAST: HISTORY: Left-sided weakness. 3D [id number] MR angiography was performed at the level of the [place] of [place]. The examination is very limited secondary to motion. The internal carotid arteries , left vertebral artery and basilar arteries are patent. The remaining major vessels are not seen. IMPRESSION: Nondiagnostic examination. Signed by Toni Lott MD 02/07/2017 11:38 A
--- NOTE | 2017-02-07 11:37 | REP ---
MR BRAIN WITHOUT CONTRAST: HISTORY: Left-sided weakness. COMPARISON: 09/29/2016 The examination is limited secondary to motion. Areas of increased signal intensity on T2-weighted images are present in the basal ganglia, thalami and cerebellum. These represent old lacunar infarctions. Punctate and confluent areas of increased signal intensity on T2-weighted images are present in the periventricular and subcortical white matter. This represents small vessel ischemic disease. There is no intraparenchymal hemorrhage, acute infarct, mass or midline shift. The ventricular system and cortical sulci as well as subarachnoid space in the posterior fossa are dilated consistent with moderate volume loss. There is no extracerebral collection. The sinuses are clear. IMPRESSION: 1. Old bilateral basal ganglia, thalamic, and cerebellar lacunar infarctions. 2. Small vessel ischemic disease. 3. Moderate volume loss. Signed by Toni Lott MD 02/07/2017 11:38 A
[2017-02-07 12:00] VITALS: BP 124/75
[2017-02-07] MEDS ORDERED: ATROPINE SULFATE 1% OP SOLN 2 ML BTL SL PRN (13:45)
[2017-02-07] MEDS ORDERED: MORPHINE 2 MG/ML 1ML SYRINGE IV PRN (13:45)
[2017-02-07] MEDS ORDERED: LORazepam 1 MG TAB PO PRN (13:45)
[2017-02-07] MEDS ORDERED: SCOPOLAMINE 1.5 MG TRANSDERMAL TD PRN (13:45)
[2017-02-07] MEDS ORDERED: FLEET ENEMA PR PRN (13:45)
[2017-02-07] MEDS ORDERED: ONDANSETRON 4MG/2ML VIAL (J2405) IV PRN (13:45)
--- NOTE | 2017-02-07 13:47 | HPE ---
DATE OF ADMISSION: 02/06/2017 PRIMARY CARE PROVIDER: Dr. Samson CHIEF COMPLAINT: Altered mental status. HISTORY OF PRESENT ILLNESS: 82-year-old female presented to the emergency department, sent in from the halfway after having what the nurses there felt was seizure activity with shaking and altered mental status. There was no description of her eyes rolling back in her head. No bladder or bowel incontinence was described and no prior history of seizure disorder. She does however have a significant history of dementia with progressive cognitive dysfunction, hypertension, coronary disease, hyperlipidemia, diabetes, but not on any current medications, hyperlipidemia, mild anemia, chronic kidney disease stage III and a history of aortic abdominal aneurysm, but likely not a candidate for any further evaluation. There was some question regarding her Medical Orders for Life Sustaining Treatment (MOLST) form. She did have listed comfort measures only, DO NOT RESUSCITATE, DO NOT INTUBATE. I did, as well as the emergency room physician, discuss this further with her healthcare proxy, Shakir Adhikari, who was present at bedside, who indicated that she did not wish the patient be comfort measures only that she would rather her have further evaluation to see if this was a stroke versus seizure disorder versus a heart attack, and we will update her MOLST form accordingly. The patient is unable to give any reliable history at this point; however, I saw that she had been admitted to the hospital a few months ago and was treated for urinary tract infection, completed a course of antibiotics. CT scan at that time showed significant atrophy. According to the daughter, she has a history of falls and needs assistance with activities of daily living. She had been a halfway resident and was receiving some physical therapy; however, the patient's daughter informed me that she believes that has been discontinued since the patient has not been participating well in physical therapy. PAST MEDICAL HISTORY: 1. Hypertension. 2. Coronary artery disease, coronary artery bypass graft. 3. Cataracts 4. Hysterectomy. 5. Dementia. 6. Chronic kidney disease stage III. 7. Diabetes, not currently on any medications. 8. Hyperlipidemia, not currently being treated. PAST SURGICAL HISTORY: 1. Hysterectomy. 2. Coronary artery bypass graft (CABG). 3. Cataract surgery bilaterally. ALLERGIES: CIPRO causes some swelling. SOCIAL HISTORY: She is a resident at the halfway. 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 Her healthcare proxy is Shakir Adhikari, cell phone number is [phone] and MOLST form will be updated. FAMILY HISTORY: Noncontributory due to advanced age. REVIEW OF SYSTEMS: Unable to obtain due to dementia and lethargy. CURRENT MEDICATIONS: - aspirin 81 mg daily - Lotrimin applied twice a day - metoprolol tartrate 12.5 mg twice a day - multivitamin one tablet daily - Protonix 40 mg daily - Tylenol 650 mg every 4 hours as needed - Dulcolax suppository 10 mg as needed - Senokot one tablet twice a day as needed - milk of magnesia 30 mL daily as needed - MiraLax one packet daily - Fleet's enema one dosed every 72 hours as needed PHYSICAL EXAMINATION: VITAL SIGNS: Temperature is 98, pulse 104 and regular, respiratory rate is 20, blood pressure 153/103, repeat is 139/73, SpO2 is 98% on room air. GENERAL: The patient appears to be in no acute distress. She is lethargic, was not conversant. She does respond to sternal rub with movement of all four extremities. She does not follow commands. HEENT: Otherwise, eyes PERRLA, throat clear. Mucosal membrane does appear to be slightly dry. Neck is supple. No jugular venous distention (JVD). LUNGS: Clear. HEART: Regular rate and rhythm. ABDOMEN: Soft. EXTREMITIES: No edema. No calf tenderness. Unable to evaluate cranial nerves and unable to elicit financial services consultant strength. LABORATORY DATA: White count is 11.7, hemoglobin 13.3, platelets 391,000. Sodium 137, potassium 4.9, chloride 101, bicarbonate 22, anion gap 14, BUN is 49, creatinine is 2.13, up from her baseline of 1.3 to 1.4, glucose was 814 and she did receive 10 units of insulin. Her total CK is 142, CK-MB is 8.1, troponin is 1.17. 12-lead EKG at the time of her admission to the ER did show sinus tachycardia with a ventricular rate of 126, this has since decreased to 104. She did have some left axis deviation and possible first-degree AV block, left bundle branch block. Most notably she does have ST depression in leads V5-V6, which is new from her prior EKG. Chest x-ray showed left lower lobe scar. Cardiomegaly is noted but no pulmonary vascular findings. Head CT showed small vessel ischemic disease with moderate volume loss. IMPRESSION: 1. Altered mental status, likely metabolic encephalopathy superimposed on her progressive dementia, question of whether or not she had a seizure. She has already seeing received a dose of Keppra at this point. 2. Acute kidney injury, likely secondary to some mild dehydration, which she has received some IV fluids in the emergency department. 3. Elevated troponin with ST depression on EKG, notably in leads V5-V6. 4. Hypertension. 5. Hyperlipidemia. 6. Coronary artery disease, status post CABG procedure. 7. Cataracts. 8. Progressive cognitive impairment and dementia. 9. Hyperlipidemia. 10. Diabetes. PLAN: The patient will be admitted to progressive care unit (PCU) on observation per Dr. Barrera. We will cycle her troponins, seizure precautions. Repeat EKG in the morning. 2-D echo and order an EEG, as well as MRI, MRA. Continue on the Keppra for the time being. We may want to run this by neurology tomorrow morning. For the meantime, she does appear to be comfortable. I did speak to the family, who are wanting to modify her MOLST form to get rid of the comfort measures only, place her on DO NOT RESUSCITATE, DO NOT INTUBATE, however, her healthcare proxy did indicate that she did not want any major heroics should we find some significant findings. Deep vein thrombosis (DVT) prophylaxis with heparin. DISPOSITION: The patient will be admitted to observation and we will reevaluate her status and findings in the morning.
--- NOTE | 2017-02-07 14:02 | ECGEPIP ---
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
[2017-02-07] MEDS ORDERED: SLF 3 ML SYR IV PRN (14:15)
[2017-02-07] MEDS: SLF 3 ML SYR IV SCH (22:25)
[2017-02-08] MEDS: MORPHINE 10MG/0.5ML ORAL CONCENTRATE SOLUTION U/D SL PRN ×3 (02:34→08:14)
--- NOTE | 2017-02-08 05:00 | IPN ---
DATE OF SERVICE: 02/07/2017 Patient seen and examined. Patient not arousable. Withdraws from pain. No further history possible. Seems to be lethargic and pale. VITAL SIGNS: Temperature 99.2, pulse 128, respirations 28, blood pressure 124/75 , pulse oximetry 94% on 2 liters nasal cannula. LABORATORY: WBC 20.5, hemoglobin and hematocrit 12.9/39.5, platelets 380. Chemistry: Sodium 150, potassium 3.8, chloride 114, bicarbonate 26, BUN 58, creatinine 2.19, troponin 150. PHYSICAL EXAM: GENERAL: Patient pale and lethargic. Withdraws from pain. Not conversational. HEENT: Normocephalic. Dry mucous membrane. NECK: Supple. No jugular venous distention (JVD). PULMONARY: Bilaterally clear. CARDIAC: Tachycardia, irregular, S1, S2. ABDOMEN: Soft, nontender. Positive bowel sounds. EXTREMITIES: No edema of bilateral lower extremities. NEUROLOGIC: Withdraws from pain all four extremities. Patient not able to follow commands. ASSESSMENT AND PLAN: This is an 82-year-old female patient with underlying medical history of advanced dementia, hypertension, coronary arterial disease with coronary artery bypass graft (CABG), cataract, hysterectomy, chronic kidney disease (CKD) stage III, diabetes currently not on any medication, dyslipidemia. Patient was brought to the hospital with altered mental status, metabolic encephalopathy with questions of seizure, found to have non-ST segment elevation myocardial infarction (NSTEMI) with sepsis. PROBLEMS: 1. Altered mental status, metabolic encephalopathy with NSTEMI, progressive advanced dementia at baseline, questionable seizure. Was given Keppra. CT scan of the head along with MRI of the brain was done. Case ws discussed with family given advanced dementia, patient not tolerating much oral, and NSTEMI. Patient was made nothing by mouth after found eating. 2. Acute on chronic renal insufficiency, possibly secondary to dehydration. IV fluids were initially given. Currently, patient is comfort measures only (INTERVENTIONAL TECH). 3. NSTEMI, demand ischemia versus cardiac event. Possibly cardiac event given patient with history of coronary arterial disease. Case was discussed with family. Would not like to pursue any aggressive measures, which include cardiac catheterization or anticoagulation. Patient has wish of being comfort measures only. 4. Hypertension. Given patient with borderline blood pressure, will not give any blood pressure medication. 5. Dyslipidemia. Patient currently comfort measures only. 6. Coronary arterial disease with CABG. Patient was given aspirin rectally but currently comfort measures only. 7. Cataracts. Supportive care. 8. Dementia. Supportive care. 9. Diabetes. Patient was given insulin. A1c is appreciated. Currently, comfort measures only; therefore, insulin and fingersticks were discontinued. 10, protein calorie malnutrition DISPOSITION: Patient initially admitted to intensive care unit (ICU). MRI/MRA appreciated, negative for acute stroke but shows chronic stroke. Family meeting was held, first with the son, then with daughter and the son along with granddaughters. It is agreed that patient would not want any aggressive measures , which include anticoagulation, central line, intubation, resuscitation, cardiac catheterization, or CABG. Given patient is not tolerating any oral and patient has expressed a wish of not being on tube feeding and with advanced dementia and with minimal quality of life prior to admission, family has elected for the patient to be comfort measures only and is agreeable to no further blood draw and further testing recommended. Pain regimen including morphine, benzodiazepines, along with scopolamine, atropine were ordered for the patient. Patient's family does prefer patient to be cared by hospice-trained staff. Subsequently, patient is transferred to medical/surgical floor on INTERVENTIONAL TECH pending hospice. Consult for transfer to hospice house. ADVANCED CARE PLANNING: Family meeting was held. Comfort measures were determined after meeting with the son, and then the daughter, and then the whole family together. Patient is currently comfort measures only. TIME SPENT: 40 minutes for arranging, coordinating, and doing family meeting. [facility]
[2017-02-08] MEDS: SLF 3 ML SYR IV SCH ×3 (05:21→22:38)
[2017-02-08] MEDS: LORazepam 2 MG/ML VIAL (J2060) IV PRN ×2 (09:13→22:38)
--- NOTE | 2017-02-08 20:45 | IPN ---
DATE: 02/08/2017 Patient seen and examined. Tachypneic, comfortable, nonresponsive. Grimaces to sternal rub. Currently Comfort Measures Only. PHYSICAL EXAMINATION: GENERAL: Patient pale, lethargic, barely arousable, withdraws from pain. HEENT: Normocephalic, dry mucous membranes. NECK: Supple. PULMONARY: Tachypneic. Bilaterally clear. CARDIAC: Tachycardia. Irregular, S1, S2. ABDOMEN: Soft, nontender, positive bowel sounds. EXTREMITIES: No edema bilateral lower extremities. ASSESSMENT AND PLAN: This is an 82-year-old female patient with underlying medical history of advanced dementia, hypertension, coronary artery disease with coronary artery bypass graft (CABG), cataracts, hysterectomy, chronic kidney disease, stage III, diabetes, currently not on any medication, dyslipidemia. The patient was brought into the hospital with altered mental status, metabolic encephalopathy with question of seizure, found to have non-ST elevation myocardial infarction (NSTEMI) and with sepsis. Problems: 1. Altered mental status, metabolic encephalopathy with NSTEMI, progressive advanced dementia, at baseline, questionable seizure, currently Comfort Measures Only. Initially was given Keppra. CT scan of the head, MRI was done. Currently Comfort Measures Only. 2. Acute on chronic renal insufficiency. Possibly secondary to dehydration. Intravenous (IV) fluids initially given. Current DATABASE ADMIN. 3. NSTEMI. Demand ischemia versus cardiac event. The patient does have underlying coronary artery disease. Case discussed with family. Currently Comfort Measures Only. 4. Hypertension. 5. Dyslipidemia. 6. Coronary artery disease with CABG. 7. Cataracts. 8. Dementia. 9. Diabetes. 10. Protein-calorie malnutrition. DISPOSITION: Patient currently DATABASE ADMIN. Hospice consulted. Family would like the patient to go to hospice house. Will continue Ativan, morphine, scopolamine and atropine, bowel regimen, supportive care. Patient currently is Comfort Measures Only.
[2017-02-09] MEDS: LORazepam 2 MG/ML VIAL (J2060) IV PRN ×2 (04:40→15:57)
[2017-02-09] MEDS: SLF 3 ML SYR IV SCH ×2 (06:02→14:00)
[2017-02-09] MEDS: MORPHINE 10MG/0.5ML ORAL CONCENTRATE SOLUTION U/D SL PRN (06:35)
[2017-02-09] MEDS ORDERED: EPIDURAL/PCA KEYS XX PRN (11:30)
[2017-02-09] MEDS ORDERED: MORPHINE SULF IN 0.9% NACL 100 MG in APPROPRIATE DILUENT 1 EA IV SCH ×2 (11:30)
--- NOTE | 2017-02-10 09:36 | DSES ---
DATE OF ADMISSION: 02/06/2017 DATE OF : 02/09/2017 TIME: 8:13 p.m. PRIMARY CARE PROVIDER: Dr. Robertson FINAL DIAGNOSES: 1. Metabolic encephalopathy secondary to non ST elevation myocardial infarction. 2. Acute on chronic renal insufficiency. 3. Coronary arterial disease. 4. Hypertension. 5. Dyslipidemia. 6. Cataract. 7. Dementia. 8. Diabetes. 9. Protein calorie malnutrition. The patient is comfort measures only. HISTORY OF PRESENT ILLNESS: This is an 82-year-old female patient with underlying medical history of coronary artery disease, hypertension, cataract, hysterectomy, dementia, chronic kidney disease stage III, diabetes and not on any medications, dyslipidemia, the patient was comfort measures only at the nursing facility and was brought to the emergency room after the nurses there felt that the patient had seizure activity or shaking, altered mental status. There is no description of eyes rolling back, bladder or bowel incontinence. No prior history of seizures. The patient does have significant history of dementia, progressive cognitive dysfunction, hypertension, coronary arterial disease, dyslipidemia, diabetes and not on any medications, chronic kidney disease stage III, mild anemia, and history or abdominal aortic aneurysm, not a candidate for further evaluation, Medical Orders for Life Sustaining Treatment (MOLST) form shows the patient is comfort measures only at the initial assessment, but the family has wanted the patient to be brought to the hospital and reverse [employer]. In the emergency room, discussed with healthcare proxy. Laboratories were done showing elevated troponin. The patient was given Keppra and Ativan with no improvement. Subsequently, the patient was admitted for further workup and trending of troponin. Aspirin per rectum has been given. HOSPITALIZATION COURSE: The patient was admitted to intensive care unit (ICU). Cardiac enzymes were trended. Aspirin per rectum has been given. The patient's cultures were sent. Neuro checks were done. MRI was also done. Insulin was given to control the patient's glucose. Over the course of the first night, the patient's troponin has increased dramatically to 150. The patient continued to remain unresponsive with elevated kidney function. Case was discussed with family. Given that the patient does not want any aggressive heroic measures, does not want further cardiac workup or surgery in the past and has not wanted tube feeding, given the patient most likely had a significant cardiac event, family would like to make the patient comfort measures only with hospice on consult. Subsequently, the patient was made comfort measures only. Pain medication, anxiety medication have been given for air hunger and scopolamine and atropine have been given. On 02/09/2017, the patient continued to remain tachypneic with air hunger. Subsequently, morphine drip was added. The patient was also agonal on 02/09/2017 in the morning. Family was consulted regarding the patient's condition. They elected to keep the patient in the hospital under comfort measures only instead of going to hospice house. Subsequently, the patient was kept in the hospital. The patient on 02/09/2017 at 8:13 p.m. under comfort measures only.
== END 2017-02-09 20:13 | disposition expired ==
LOC: M ED 16:52 → M ED INP 21:00 → M ICU 02-07 01:33 → M MSPAV 02-07 15:48
PROVIDERS: ADMIT Hospitalist; ATTEND Hospitalist
DX: G93.41 Metabolic encephalopathy (principal); I21.4 Non-ST elevation (NSTEMI) myocardial infarction; N17.9 Acute kidney failure, unspecified; N28.9 Disorder of kidney and ureter, unspecified; I25.10 Atherosclerotic heart disease of native coronary artery without angina pectoris; I12.9 Hypertensive chronic kidney disease with stage 1 through stage 4 chronic kidney disease, or unspecified chronic kidney disease; E78.5 Hyperlipidemia, unspecified; N18.3 Chronic kidney disease, stage 3 (moderate); H26.9 Unspecified cataract; F03.90 Unspecified dementia, unspecified severity, without behavioral disturbance, psychotic disturbance, mood disturbance, and anxiety; E11.9 Type 2 diabetes mellitus without complications; E46 Unspecified protein-calorie malnutrition; D64.9 Anemia, unspecified; I71.4 Abdominal aortic aneurysm, without rupture; R94.31 Abnormal electrocardiogram [ECG] [EKG]; R79.89 Other specified abnormal findings of blood chemistry; R25.8 Other abnormal involuntary movements; R06.82 Tachypnea, not elsewhere classified; I67.82 Cerebral ischemia; Z86.73 Personal history of transient ischemic attack (TIA), and cerebral infarction without residual deficits; Z95.1 Presence of aortocoronary bypass graft; Z88.1 Allergy status to other antibiotic agents; Z87.891 Personal history of nicotine dependence; Z79.899 Other long term (current) drug therapy; Z79.82 Long term (current) use of aspirin
CPT/HCPCS: 36415; 70450; 70544; 70551; 71010; 80069; 81001; 82550; 82553; 83036; 84484; 85025; 85027; 85610; 85730; 86140; 86850; 86900; 86901; 87040; 87086; 93005; 93041; 94760; 96361; 96372; 96374; 96375; 96376; 99285; G0378; J1953; J2060